=== PATIENT | female | born 1995 | race African-American/Black ===

== ENCOUNTER 2021-03-26 19:11 | Emergency (ER) | payer MEDICAID ==
[~2021-03-26] VITALS: Ht 180.3 cm; Wt 139.1 kg
[2021-03-26 19:38] VITALS: TEMP 98
[2021-03-26 20:22] LABS: ALANINE AMINOTRANSFERASE 16 U/L (0-55); ALBUMIN 3.2 gm/dL (3.5-5.0); ALKALINE PHOSPHATASE 90 U/L (0-750); ANION GAP 9 mmol/L; AST,SGOT 38 U/L (5-34); BILIRUBIN,TOTAL 0.1 mg/dL (0.2-1.2); BLOOD UREA NITROGEN 12 mg/dL (7-19); CALCIUM 9.3 mg/dL (8.4-10.2); CARBON DIOXIDE 21 mEq/L (22-29); CHLORIDE 108 mmol/L (98-107); CREATININE, serum 0.87 mg/dL (0.57-1.11); GLUCOSE 157 mg/dL (70-99); SODIUM 138 mmol/L (136-145); TOTAL PROTEIN 8.3 gm/dL (6.2-8.1)
[2021-03-26 20:31] LABS: BASO # 0.1 (0.0-0.2); BASO % 0.8 % (0.0-2.0); EOS % 0.5 % (0-4.0); GRAN # 2.5 (1.4-6.5); GRAN % 40.7 % (42.2-75.2); HEMATOCRIT 35.6 % (37.0-47.0); HEMOGLOBIN 11.5 g/dl (12.5-16.0); LYMPH # 3.1 (1.2-3.4); MEAN CELL VOLUME 86 fl (80.0-100.0); MEAN CORPUSCULAR HEMOGLOBIN 28 pg (27.0-31.0); MEAN CORPUSCULAR HGB CONC 32 g/dl (33.0-37.0); MEAN PLATELET VOLUME 10.4 fl (7.4-10.4); MONO # 0.5 (0.1-0.6); MONO % 7.8 % (1.7-9.3); PLATELET COUNT 315 K/mm3 (130-400); RED BLOOD COUNT 4.13 M/mm3 (4.10-5.30); REDCELL DISTRIBUTION WIDTH-CV 12.8 % (11.5-14.5)
[2021-03-26 20:31] LABS: HCG,QUANTITATIVE < 1 mIU/mL
[2021-03-26] MEDS ORDERED: MOTRIN 800800 MG/TAB PO (21:43)
[2021-03-26] MEDS ORDERED: NORCO 325 MG-51 TAB PO (21:43)
[2021-03-26 21:48] VITALS: BP 128/72; PULSE 90
[2021-04-07] MEDS ORDERED: FERROUSAL325 MG PO (20:13)
[2021-04-07] MEDS ORDERED: LANTUS100 U/ML SQ (20:14)
[2021-04-07] MEDS ORDERED: NOVOLOG FLEX100 U/ML SQ (20:15)
[2021-04-07] MEDS ORDERED: VITAMIN D 50,1.25 MG PO (20:16)
== END 2021-03-26 21:51 | disposition home or self-care (01) ==
LOC: COL.ER 19:11
PROVIDERS: Personal Emergency Response Attendant
DX: N93.9 Abnormal uterine and vaginal bleeding, unspecified (principal); E11.9 Type 2 diabetes mellitus without complications; E66.9 Obesity, unspecified; Z68.41 Body mass index [BMI] 40.0-44.9, adult; Z32.02 Encounter for pregnancy test, result negative
CPT/HCPCS: J2270; J2405; J7030

== ENCOUNTER 2021-04-18 16:00 | Outpatient (RCR) | payer MEDICAID ==
[2021-04-07 15:39] VITALS: BP 183/98; PULSE 96; TEMP 98.2
[2021-04-07 15:43] VITALS: BP 151/96; PULSE 93
[2021-04-11 10:35] VITALS: BP 138/57; PULSE 80; TEMP 97.7
[2021-04-14 16:25] VITALS: BP 137/92; PULSE 88; TEMP 98.8
[~2021-04-18] VITALS: Ht 180.3 cm; Wt 142.0 kg
[~2021-04-18 16:00] MED LIST: FERROUSAL325 MG PO; LANTUS100 U/ML SQ; MOTRIN 800800 MG/TAB PO; NORCO 325 MG-51 TAB PO; NOVOLOG FLEX100 U/ML SQ; VITAMIN D 50,1.25 MG PO
[2021-04-18 16:10] VITALS: BP 130/87; PULSE 81; TEMP 98
== END 2021-04-18 17:00 | disposition home or self-care (01) ==
LOC: EUO 16:00
DX: D64.9 Anemia, unspecified (principal); Z79.899 Other long term (current) drug therapy
CPT/HCPCS: J1756; J7050